=== PATIENT | female | born 1960 | race Caucasian/White ===

== ENCOUNTER 2018-12-04 11:42 | Inpatient (IN) | payer OTHER, SELFPAY ==
[2018-12-04] VITALS (15 sets, daily range): BP systolic 84–145; BP diastolic 52–73; PULSE 92–105; RESP 12–21; TEMP 36.4–37.4; O2SAT 92–99; BMI 29.1
--- NOTE | 2018-12-04 | PATH_ITS ---
[facility] Accession Number: [id number] . 01 Material submitted: . appendix - APPENDIX . 01 Clinical history: . THROWING UP ALL NIGHT, ABD PAIN . 02 Diagnosis: Appendix, Laparoscopic Appendectomy: Portions of appendiceal wall with nonspecific serosal adhesions; no definite acute appendicitis identified. Attached periappendiceal adipose tissue with scattered fragments of fibrinopurulent exudate; findings are suggestive of clinical impression of perforated appendix. Please correlate with imaging and operative findings. [facility] 12/09/2018 1710 Local . 02 Electronically signed: . Nupur Spencer MD, Pathologist NPI- [id number] . 01 Gross description: . Received in formalin, labeled appendix, is a piece of fan mucosa (2.0 x 1.3 x 0.7 cm) with an attached piece of adipose tissue (10.7 x 3.2 x 0.7 cm). The resection margin is received stapled. No obvious appendix is identified. No nodules, masses or lesions are identified. The resection margin is inked black. The mucosa is serially sectioned and entirely submitted in cassette A1 and district sales representative adipose tissue is submitted in cassette A2. Remaining possible appendiceal tissue. ([id number]) /MRV 12/08/2018 1345 Local . 02 Pathologist provided ICD-10: R10.9 . 02 CPT . 420288 Performed at: 01 [facility] [address] [facility], [place], [place] [id number] MD Graham Bernard MD Phone: [phone] Performed at: 02 [facility] [address] [place], [place] [id number] MD Edwige Morrow MD Phone: [phone]
--- NOTE | 2018-12-04 11:47 | ED.NAVMDI ---
HPI - Nausea/Vomiting/Diarrhea <Mylene Krause PA-C - Last Filed: 12/04/18 17:30> General Chief complaint: Abdominal Pain Stated complaint: throwing up all night, abd pain Time Seen by Provider: 12/04/18 11:45 Source: patient Mode of arrival: Ambulatory Limitations: no limitations History of Present Illness HPI Narrative: This 58-year-old female comes to ED secondary to onset of bloating and recurrent vomiting more than 12 hours ago, 4-5 times, mostly bilious, then abdominal pain which started about 2 hours ago. She states that she has not been able to keep down sips of water even due to the nausea and vomiting. She states that yesterday, she did eat some reheated tacos at a potluck, does not know of any others who became ill. She does not know of any other possible exposures. She states that she is feeling slightly chilled, no shakes or sweats, has not taken temperature. She states she had a small, normal bowel movement last night, no diarrhea or blood in the stools. She denies any chest pain or dyspnea, pain elsewhere such as the extremities. She denies any extremity swelling. She states that pain is in the right flank and upper quadrant area, seems constant, not exacerbated by movement or other factors that she can think of. She notes that she has been taking 2 Aleve daily, no side effects with that. No history of bleeding or ulcers Related Data Allergies Allergy/AdvReac Type Severity Reaction Status Date / Time hydromorphone [From Dilaudid] Allergy Verified 12/04/18 12:23 Sulfa (Sulfonamide Allergy Verified 12/04/18 12:23 Antibiotics) Review of Systems <Mylene Krause PA-C - Last Filed: 12/04/18 17:30> Review of Systems ROS Unobtainable: All systems reviewed & are unremarkable except as noted in HPI and below PFSH <Mylene Krause PA-C - Last Filed: 12/04/18 17:30> Medical History No chronic problems (Chronic) Surgical History Status post hysterectomy (Resolved) Status post mitral valve replacement (Resolved) Social History Smoking Status: Never smoker Social History Smoking Status: Never smoker Comment: Denies history of tobacco, moderate ETOH Exam <Mylene Krause PA-C - Last Filed: 12/04/18 17:30> Narrative Exam Narrative: GENERAL APPEARANCE: Patient appears mildly uncomfortable, in no acute distress. HEENT: PERRL, EOMI, no scleral icterus, normal oropharynx NECK: Supple LUNGS: Clear to auscultation bilaterally. HEART: Rate and rhythm regular, normal S1 and S2, no S3 or S4. ABDOMEN: Soft, mildly distended, bowel sounds present x 4 quadrants, no masses palpable. Moderate right upper quadrant tenderness with +Basurto's sign, +right CVAT. No point tenderness elsewhere, including RLQ/McBurney's point, no guarding or rebound EXTREMITIES: No edema, no cyanosis DERMATOLOGIC: No jaundice or exanthem NEUROLOGIC: Alert and oriented with normal speech and coordination Initial Vital Signs Initial Vital Signs: Vital Signs Temperature 99.3 F 12/04/18 12:09 Pulse Rate 95 H 12/04/18 12:09 Respiratory Rate 20 12/04/18 12:09 Blood Pressure 145/73 H 12/04/18 12:09 Pulse Oximetry 99 12/04/18 12:09 <Froilan Little DO - Last Filed: 12/04/18 17:38> Initial Vital Signs Initial Vital Signs: Vital Signs Temperature 99.3 F 12/04/18 12:09 Pulse Rate 95 H 12/04/18 12:09 Respiratory Rate 20 12/04/18 12:09 Blood Pressure 145/73 H 12/04/18 12:09 Pulse Oximetry 99 12/04/18 12:09 Course <Mylene Krause PA-C - Last Filed: 12/04/18 17:30> Course Additional Information: Patient is sleeping and resting comfortably after medications, reports worsening pain when ambulating to restroom earlier. She has been NPO since yesterday. Radiology phoned in advised of perforated appendicitis. Have discussed with patient and she prefers proceeding with surgery versus trial of antibiotics. I have spoken with Dr. Chavez, on-call for surgery who will admit for surgery and management ([id number]). Zosyn ordered Orders Ordered: ED Orders 12/04/18 12:01 US abdomen limited Stat 12/04/18 12:05 Complete Blood Count AUTO DIFF Stat Comprehensive Metabolic Panel Stat Lipase Stat 12/04/18 13:40 CT abdomen pelvis w con Stat Acetaminophen (Tylenol) 650 mg PO Q6HR SANJ[facility]ITA Acetaminophen (Tylenol) 325 mg PO NOW PRN PRN Reason: Pain, Mild (1-3) Enoxaparin Sodium (Lovenox) 30 mg SUBCUT DAILY [facility] Fentanyl (Sublimaze) 50 mcg IV Q5MIN PRN PRN Reason: Pain, Moderate (4-6) Dextrose/Sodium Chloride (Dextrose 5%-0.9% Ns) 1,000 mls @ 100 mls/hr IV CONT SANJUANITA Lactated Ringer's (Lactated Ringers) 1,000 mls @ 42 mls/hr IV CONT SANJUANITA Last Admin: 12/04/18 17:13 Dose: 42 mls/hr Documented by: JAIME Ketorolac Tromethamine (Toradol) 30 mg IV Q6HR [facility] Stop: 12/09/18 16:16 Lorazepam (Ativan) 0.25 mg IV NOW PRN PRN Reason: Anxiety Metoclopramide HCl (Reglan) 10 mg IV NOW PRN PRN Reason: Nausea And Vomiting Ondansetron HCl (Zofran) 4 mg IV Q8HR PRN PRN Reason: Nausea And Vomiting Ondansetron HCl (Zofran) 4 mg IV NOW PRN PRN Reason: Nausea And Vomiting Oxycodone HCl (Percolone) 5 mg PO Q6HR PRN PRN Reason: Pain, Moderate (4-6) Oxycodone/Acetaminophen (Percocet 5/325) 1 tab PO Q30MIN PRN PRN Reason: Mild or moderate pain Discontinued Medications Bupivacaine HCl (Sensorcaine 0.5% (Pf)) 30 ml INJ NOW ONE Stop: 12/04/18 16:54 Last Admin: 12/04/18 16:53 Dose: 30 ml Documented by: MELK Sodium Chloride (Normal Saline 0.9%) 1,000 mls @ 1,000 mls/hr IV BOLUS ONE Stop: 12/04/18 12:59 Last Infusion: 12/04/18 13:28 Dose: 0 mls/hr Documented by: Admin: 12/04/18 12:24 Dose: 1,000 mls/hr Documented by: BTONER Sodium Chloride (Normal Saline 0.9%) 1,000 mls @ 1,000 mls/hr IV BOLUS ONE Stop: 12/04/18 14:25 Last Infusion: 12/04/18 15:37 Dose: 0 mls/hr Documented by: Admin: 12/04/18 13:33 Dose: 1,000 mls/hr Documented by: MARY Piperacillin/Tazobactam/Dextrose (Zosyn) 4.5 gm in 100 mls @ 200 mls/hr IV NOW ONE Stop: 12/04/18 15:00 Last Infusion: 12/04/18 15:37 Dose: 0 mls/hr Documented by: Admin: 12/04/18 14:54 Dose: 200 mls/hr Documented by: MAYR Ketorolac Tromethamine (Toradol) 30 mg IV NOW ONE Stop: 12/04/18 12:01 Last Admin: 12/04/18 12:24 Dose: 30 mg Documented by: JAVON Morphine Sulfate (Morphine) 4 mg IV NOW ONE Stop: 12/04/18 13:27 Last Admin: 12/04/18 13:33 Dose: 4 mg Documented by: MARY Morphine Sulfate (Morphine) 4 mg IV NOW ONE Stop: 12/04/18 15:34 Last Admin: 12/04/18 15:57 Dose: 4 mg Documented by: MARY Ondansetron HCl (Zofran) 4 mg IV NOW ONE Stop: 12/04/18 12:01 Last Admin: 12/04/18 12:25 Dose: 4 mg Documented by: JAVON Pantoprazole Sodium (Protonix) 40 mg IV NOW ONE Stop: 12/04/18 12:01 Last Admin: 12/04/18 12:24 Dose: 40 mg Documented by: JAVON Vital Signs Vital signs: Vital Signs - 8 hr 12/04/18 12:09 Temperature 99.3 F Pulse Rate 95 H Respiratory Rate 20 Blood Pressure 145/73 H Pulse Oximetry 99 <Froilan Little DO - Last Filed: 12/04/18 17:38> Orders Ordered: ED Orders 12/04/18 12:01 US abdomen limited Stat 12/04/18 12:05 Complete Blood Count AUTO DIFF Stat Comprehensive Metabolic Panel Stat Lipase Stat 12/04/18 13:40 CT abdomen pelvis w con Stat Acetaminophen (Tylenol) 650 mg PO Q6HR [facility] Acetaminophen (Tylenol) 325 mg PO NOW PRN PRN Reason: Pain, Mild (1-3) Enoxaparin Sodium (Lovenox) 30 mg SUBCUT DAILY [facility] Fentanyl (Sublimaze) 50 mcg IV Q5MIN PRN PRN Reason: Pain, Moderate (4-6) Dextrose/Sodium Chloride (Dextrose 5%-0.9% Ns) 1,000 mls @ 100 mls/hr IV CONT SANJUANITA Lactated Ringer's (Lactated Ringers) 1,000 mls @ 42 mls/hr IV CONT SANJUANITA Last Admin: 12/04/18 17:13 Dose: 42 mls/hr Documented by: JAIME Ketorolac Tromethamine (Toradol) 30 mg IV Q6HR [facility] Stop: 12/09/18 16:16 Lorazepam (Ativan) 0.25 mg IV NOW PRN PRN Reason: Anxiety Metoclopramide HCl (Reglan) 10 mg IV NOW PRN PRN Reason: Nausea And Vomiting Ondansetron HCl (Zofran) 4 mg IV Q8HR PRN PRN Reason: Nausea And Vomiting Ondansetron HCl (Zofran) 4 mg IV NOW PRN PRN Reason: Nausea And Vomiting Oxycodone HCl (Percolone) 5 mg PO Q6HR PRN PRN Reason: Pain, Moderate (4-6) Oxycodone/Acetaminophen (Percocet 5/325) 1 tab PO Q30MIN PRN PRN Reason: Mild or moderate pain Discontinued Medications Bupivacaine HCl (Sensorcaine 0.5% (Pf)) 30 ml INJ NOW ONE Stop: 12/04/18 16:54 Last Admin: 12/04/18 16:53 Dose: 30 ml Documented by: SAILAJA Sodium Chloride (Normal Saline 0.9%) 1,000 mls @ 1,000 mls/hr IV BOLUS ONE Stop: 12/04/18 12:59 Last Infusion: 12/04/18 13:28 Dose: 0 mls/hr Documented by: Admin: 12/04/18 12:24 Dose: 1,000 mls/hr Documented by: BTONEJoaquin Sodium Chloride (Normal Saline 0.9%) 1,000 mls @ 1,000 mls/hr IV BOLUS ONE Stop: 12/04/18 14:25 Last Infusion: 12/04/18 15:37 Dose: 0 mls/hr Documented by: Admin: 12/04/18 13:33 Dose: 1,000 mls/hr Documented by: MARY Piperacillin/Tazobactam/Dextrose (Zosyn) 4.5 gm in 100 mls @ 200 mls/hr IV NOW ONE Stop: 12/04/18 15:00 Last Infusion: 12/04/18 15:37 Dose: 0 mls/hr Documented by: Admin: 12/04/18 14:54 Dose: 200 mls/hr Documented by: MARY Ketorolac Tromethamine (Toradol) 30 mg IV NOW ONE Stop: 12/04/18 12:01 Last Admin: 12/04/18 12:24 Dose: 30 mg Documented by: JAVON Morphine Sulfate (Morphine) 4 mg IV NOW ONE Stop: 12/04/18 13:27 Last Admin: 12/04/18 13:33 Dose: 4 mg Documented by: MARY Morphine Sulfate (Morphine) 4 mg IV NOW ONE Stop: 12/04/18 15:34 Last Admin: 12/04/18 15:57 Dose: 4 mg Documented by: MARY Ondansetron HCl (Zofran) 4 mg IV NOW ONE Stop: 12/04/18 12:01 Last Admin: 12/04/18 12:25 Dose: 4 mg Documented by: JAVON Pantoprazole Sodium (Protonix) 40 mg IV NOW ONE Stop: 12/04/18 12:01 Last Admin: 12/04/18 12:24 Dose: 40 mg Documented by: JAVON Vital Signs Vital signs: Vital Signs - 8 hr 12/04/18 12:09 Temperature 99.3 F Pulse Rate 95 H Respiratory Rate 20 Blood Pressure 145/73 H Pulse Oximetry 99 MDM - Nausea/Vomiting/Diarrhea <Mylene Krause PA-C - Last Filed: 12/04/18 17:30> Lab Data Attestation: I reviewed the patient's lab results. Result diagrams: 12/04/18 12:05 12/04/18 12:05 Labs: Lab Results 12/04/18 12/04/18 Range/Units 12:05 12:05 WBC 19.4 H (4.5-11.0) X10^3/uL RBC 4.80 (4.0-5.2) X10^6/uL Hgb 14.5 (12.0-16.0) g/dL Hct 42.3 (36-46) % MCV 88.2 (80-100) fL MCH 30.3 (26-34) PG MCHC 34.3 (30-36) % RDW 13.2 (11.6-14.8) % Plt Count 336 (150-400) X10^3/uL Neut % (Auto) 88.6 H (50-75) % Lymph % (Auto) 4.0 L (25-40) % Coke % (Auto) 7.1 (3-14) % Eos % (Auto) 0.0 L (2-4) % Baso % (Auto) 0.3 (0-2) % Neut # (Auto) 55762 H (0172-5351) /uL Lymph # (Auto) 800 L (2235-9163) /uL Coke # (Auto) 1400 H (0-900) /uL Eos # (Auto) 0 (0-450) /uL Baso # (Auto) 100 (0-100) /uL Sodium 135 L (137-145) mmol/L Potassium 4.0 (3.4-5.1) mmol/L Chloride 96 L (98-107) mmol/L Carbon Dioxide 28 (22-32) mmol/L BUN 13 (7-17) mg/dL Creatinine 0.60 (0.52-1.04) mg/dL Estimated GFR > 60.0 (>60) mL/min BUN/Creatinine Ratio 21.7 (6-22) Glucose 151 H (70-100) mg/dL Calcium 9.4 (8.4-10.2) mg/dL Total Bilirubin 1.0 (0.2-1.3) mg/dL AST 30 (14-36) IU/L ALT 15 (9-52) IU/L Alkaline Phosphatase 85 (38-126) U/L Total Protein 7.8 (6.3-8.2) g/dL Albumin 4.7 (3.5-5.0) g/dL Globulin 3.1 (1.7-4.1) g/dL Albumin/Globulin Ratio 1.5 (1.0-2.8) Lipase 46 (23-300) U/L Urine Dip Bedside Urine Glucose Negative Bedside Urine Bilirubin - Negative Bedside Urine Ketone +/- 5 Urine Specific Cuervo 1.015 Bedside Urine Occult Blood - Negative Bedside Urine pH 6.5 Bedside Urine Protein + 30 Bedside Urine Urobilinogen +/- 1mg Bedside Urine Nitrite - Negative Bedside Urine Leukocytes - Negative Esterase Imaging Data CT scan - abdomen: Radiologist's impression: [address] [address] [address] Scan Report Signed Patient: Karin Kowalski CMR#: [id number] : 1960Acct:[id number] Age/Sex: 58 / FDate of Service: 12/04/18 Loc: ED Accession Number: [id number] Procedure: CT abdomen pelvis w con Ordering Provider: Mylene Krause P.A-C PROCEDURE: CT ABDOMEN PELVIS W CON INDICATIONS: RUQ, flank pain, white count, vomiting TECHNIQUE: After the administration of intravenous contrast, 5 mm thick sections acquired from the diaphragm to the symphysis. 5 mm coronal and sagittal reformats were acquired. For radiation dose reduction, the following was used: automated exposure control, adjustment of mA and/or kV according to patient size. COMPARISON: [facility], , ABDOMEN LIMITED, 12/04/2018, 12:27. FINDINGS: Image quality: Excellent. ABDOMEN: Lung bases: There is mild dependent atelectasis bilaterally. Heart size is normal. Solid organs: There is a small hypodensity in the left hepatic lobe which is too small to characterize but likely represents a cyst. The gallbladder Biliary system is non dilated. Pancreas enhances normally. Spleen is normal in size. Within the anterior aspect of the spleen, there is a small hypodensity measuring up to 0.9 cm which is also too small to characterize but is suggestive of a cyst. No adrenal nodules. Kidneys demonstrate normal size and enhancement, without hydronephrosis. Peritoneum and bowel: Bowel loops demonstrate normal wall thickness and caliber. The appendix is distended, measuring up to 1.5 cm in diameter with multiple intraluminal appendicoliths. There is periappendiceal fat stranding and a moderate amount of free fluid along the right paracolic gutter as well as a small amount of perihepatic and perisplenic free fluid. No discrete loculated abscess collection. No macroscopic free air. There is colonic diverticulosis without acute diverticulitis. Nodes and vessels: No retroperitoneal or mesenteric adenopathy by size criteria. Aorta and inferior vena cava are normal in size. Miscellaneous: No ventral hernias. PELVIS: Genitourinary: Bladder wall thickness is normal. Miscellaneous: No inguinal hernias or adenopathy. Bones: No suspicious bony lesions. No vertebral body compression fractures. IMPRESSION: 1. Acute appendicitis with findings suggestive of perforation given the degree of intraperitoneal free fluid. Findings discussed with Dr. Little on 12/04/18 at 1:17 PM. Dictated by: Graham Moon M.D. on 12/04/2018 at 13:14 Approved by: Graham Moon M.D. on 12/04/2018 at 13:21 US - abdomen: Radiologist's impression: [place] [address] Ultrasound Report Signed Patient: Faustino Kowalski#: [id number] : 1960Acct:[id number] Age/Sex: 58 / FDate of Service: 12/04/18 Loc: ED Accession Number: [id number] Procedure: US abdomen limited Ordering Provider: Mylene Krause P.A-C PROCEDURE: US ABDOMEN LIMITED INDICATIONS: R FLANK, UQ PAIN, VOMITING TECHNIQUE: Real-time focused scanning was performed of the right upper quadrant, with image documentation. COMPARISON: None. FINDINGS: Sonographic evaluation of the liver demonstrates no focal hepatic lesions. Liver appears within normal size limits. No gallstones, gallbladder wall thickening, or pericholecystic fluid. No intra-or extrahepatic ductal dilatation. Common bile duct measures up to 5 mm. The visualized pancreas appears unremarkable sonographically. The right kidney measures up to 9.6 cm without hydronephrosis. IMPRESSION: 1. No evidence of cholelithiasis, cholecystitis, or right hydronephrosis. Dictated by: Graham Moon M.D. on 12/04/2018 at 12:01 Approved by: Graham Moon M.D. on 12/04/2018 at 12:02 <Froilan Little DO - Last Filed: 12/04/18 17:38> Lab Data Labs: Lab Results 12/04/18 12/04/18 Range/Units 12:05 12:05 WBC 19.4 H (4.5-11.0) X10^3/uL RBC 4.80 (4.0-5.2) X10^6/uL Hgb 14.5 (12.0-16.0) g/dL Hct 42.3 (36-46) % MCV 88.2 (80-100) fL MCH 30.3 (26-34) PG MCHC 34.3 (30-36) % RDW 13.2 (11.6-14.8) % Plt Count 336 (150-400) X10^3/uL Neut % (Auto) 88.6 H (50-75) % Lymph % (Auto) 4.0 L (25-40) % Coke % (Auto) 7.1 (3-14) % Eos % (Auto) 0.0 L (2-4) % Baso % (Auto) 0.3 (0-2) % Neut # (Auto) 38624 H (1305-8819) /uL Lymph # (Auto) 800 L (5308-9274) /uL Coke # (Auto) 1400 H (0-900) /uL Eos # (Auto) 0 (0-450) /uL Baso # (Auto) 100 (0-100) /uL Sodium 135 L (137-145) mmol/L Potassium 4.0 (3.4-5.1) mmol/L Chloride 96 L (98-107) mmol/L Carbon Dioxide 28 (22-32) mmol/L BUN 13 (7-17) mg/dL Creatinine 0.60 (0.52-1.04) mg/dL Estimated GFR > 60.0 (>60) mL/min BUN/Creatinine Ratio 21.7 (6-22) Glucose 151 H (70-100) mg/dL Calcium 9.4 (8.4-10.2) mg/dL Total Bilirubin 1.0 (0.2-1.3) mg/dL AST 30 (14-36) IU/L ALT 15 (9-52) IU/L Alkaline Phosphatase 85 (38-126) U/L Total Protein 7.8 (6.3-8.2) g/dL Albumin 4.7 (3.5-5.0) g/dL Globulin 3.1 (1.7-4.1) g/dL Albumin/Globulin Ratio 1.5 (1.0-2.8) Lipase 46 (23-300) U/L Urine Dip Bedside Urine Glucose Negative Bedside Urine Bilirubin - Negative Bedside Urine Ketone +/- 5 Urine Specific Cuervo 1.015 Bedside Urine Occult Blood - Negative Bedside Urine pH 6.5 Bedside Urine Protein + 30 Bedside Urine Urobilinogen +/- 1mg Bedside Urine Nitrite - Negative Bedside Urine Leukocytes - Negative Esterase Discharge Plan Departure Patient Disposition: Admitted As Inpatient Clinical Impression: Acute appendicitis Qualifiers: Acute appendicitis type: unspecified acute appendicitis type Qualified Code(s): K35.80 - Unspecified acute appendicitis Discharge Date/Time: 12/04/18 16:10 Admit Date/Time: 12/04/18 14:57 Admit Provider: Varghese Chavez
--- NOTE | 2018-12-04 12:01 | DI.US.S_ITS ---
PROCEDURE: US ABDOMEN LIMITED INDICATIONS: R FLANK, UQ PAIN, VOMITING TECHNIQUE: Real-time focused scanning was performed of the right upper quadrant, with image documentation. COMPARISON: None. FINDINGS: Sonographic evaluation of the liver demonstrates no focal hepatic lesions. Liver appears within normal size limits. No gallstones, gallbladder wall thickening, or pericholecystic fluid. No intra-or extrahepatic ductal dilatation. Common bile duct measures up to 5 mm. The visualized pancreas appears unremarkable sonographically. The right kidney measures up to 9.6 cm without hydronephrosis. IMPRESSION: 1. No evidence of cholelithiasis, cholecystitis, or right hydronephrosis. Dictated by: Graham Moon M.D. on 12/04/2018 at 12:01 Approved by: Graham Moon M.D. on 12/04/2018 at 12:02
[2018-12-04 12:16] LABS: Add Manual Diff / Slide Review NO; Basophils Absolute Auto 100 /uL (0-100); Basophils Percent Auto 0.3 % (0-2); Eosinophils Absolute Auto 0 /uL (0-450); Hematocrit 42.3 % (36-46); Hemoglobin 14.5 g/dL (12.0-16.0); Lymphocytes Absolute Auto 800 /uL (1100-4500); Mean Corpuscular HGB Conc 34.3 % (30-36); Mean Corpuscular Hemoglobin 30.3 PG (26-34); Mean Corpuscular Volume 88.2 fL (80-100); Monocytes Absolute Auto 1400 /uL (0-900); Monocytes Percent Auto 7.1 % (3-14); Neutrophils Absolute Auto 17200 /uL (1500-7000); Neutrophils Percent Auto 88.6 % (50-75); Platelet Count 336 X10^3/uL (150-400); Red Cell Distribution Width 13.2 % (11.6-14.8); White Blood Cell Count 19.4 X10^3/uL (4.5-11.0)
[2018-12-04] MEDS: KETOROLAC 60 MG/2 ML VIAL 30 MG IV (12:24)
[2018-12-04] MEDS: SODIUM CHLORIDE 0.9% 1,000 ML 1000 ML IV ×2 (12:24→13:33)
[2018-12-04] MEDS: PANTOPRAZOLE 40 MG VIAL IV (12:24)
[2018-12-04] MEDS: ONDANSETRON 4 MG/2 ML INJ IV (12:25)
[2018-12-04 12:36] LABS: Alanine Aminotransferase 15 IU/L (9-52); Albumin 4.7 g/dL (3.5-5.0); Albumin Globulin Ratio 1.5 (1.0-2.8); Alkaline Phosphatase 85 U/L (38-126); Aspartate Aminotransferase 30 IU/L (14-36); BUN Creatinine Ratio 21.7 (6-22); Blood Urea Nitrogen 13 mg/dL (7-17); Calcium 9.4 mg/dL (8.4-10.2); Carbon Dioxide 28 mmol/L (22-32); Chloride 96 mmol/L (98-107); Estimated Glomerular Filt Rate > 60.0 mL/min (>60); Globulin 3.1 g/dL (1.7-4.1); Glucose 151 mg/dL (70-100); HEMOLYSIS < 15 (0-50); Lipase 46 U/L (23-300); Sodium 135 mmol/L (137-145); Total Protein 7.8 g/dL (6.3-8.2)
--- NOTE | 2018-12-04 13:18 | PC.NURSE ---
pt getting up from bed and states pain went up to a 9/10.
[2018-12-04] MEDS: MORPHINE 4 MG/ML INJ IV ×2 (13:33→15:57)
--- NOTE | 2018-12-04 13:40 | DI.CT.S_ITS ---
PROCEDURE: CT ABDOMEN PELVIS W CON INDICATIONS: RUQ, flank pain, white count, vomiting TECHNIQUE: After the administration of intravenous contrast, 5 mm thick sections acquired from the diaphragm to the symphysis. 5 mm coronal and sagittal reformats were acquired. For radiation dose reduction, the following was used: automated exposure control, adjustment of mA and/or kV according to patient size. COMPARISON: [facility], , ABDOMEN LIMITED, 12/04/2018, 12:27. FINDINGS: Image quality: Excellent. ABDOMEN: Lung bases: There is mild dependent atelectasis bilaterally. Heart size is normal. Solid organs: There is a small hypodensity in the left hepatic lobe which is too small to characterize but likely represents a cyst. The gallbladder Biliary system is non dilated. Pancreas enhances normally. Spleen is normal in size. Within the anterior aspect of the spleen, there is a small hypodensity measuring up to 0.9 cm which is also too small to characterize but is suggestive of a cyst. No adrenal nodules. Kidneys demonstrate normal size and enhancement, without hydronephrosis. Peritoneum and bowel: Bowel loops demonstrate normal wall thickness and caliber. The appendix is distended, measuring up to 1.5 cm in diameter with multiple intraluminal appendicoliths. There is periappendiceal fat stranding and a moderate amount of free fluid along the right paracolic gutter as well as a small amount of perihepatic and perisplenic free fluid. No discrete loculated abscess collection. No macroscopic free air. There is colonic diverticulosis without acute diverticulitis. Nodes and vessels: No retroperitoneal or mesenteric adenopathy by size criteria. Aorta and inferior vena cava are normal in size. Miscellaneous: No ventral hernias. PELVIS: Genitourinary: Bladder wall thickness is normal. Miscellaneous: No inguinal hernias or adenopathy. Bones: No suspicious bony lesions. No vertebral body compression fractures. IMPRESSION: 1. Acute appendicitis with findings suggestive of perforation given the degree of intraperitoneal free fluid. Findings discussed with Dr. Little on 12/04/18 at 1:17 PM. Dictated by: Graham Moon M.D. on 12/04/2018 at 13:14 Approved by: Graham Moon M.D. on 12/04/2018 at 13:21
[2018-12-04] MEDS: PIPERACILLIN-TAZO 4.5 GM/100 ML FROZ.PIGGY IV (14:54)
--- NOTE | 2018-12-04 15:33 | SUR.OPER ---
Supine on padded OR bed, head on pillow, arm padded and tucked at side, legs uncrossed, safety belt at thigh, tape over blanket over lower legs .
--- NOTE | 2018-12-04 15:34 | PM.HP.1 ---
History of Present Illness History of Present Illness Date Patient Seen: 12/04/18 Time Patient Seen: 16:02 Chief complaint: throwing up all night, abd pain Narrative: 58-year-old female in had abdominal discomfort and nausea yesterday and then last night began having severe right-sided abdominal pain. Associated with nausea vomiting is having bowel movements and flatus. In the emergency room she underwent a CT abdomen pelvis demonstrates a dilated appendix with stranding and some free fluid consistent with perforated appendicitis there was no evidence of abscess. Her pain is controlled now with morphine she has received her 1st dose of Zosyn in the emergency room. Medical history is significant for hypertension, mitral valve replacement and hysterectomy. Patient History Medical History No chronic problems (Chronic) Surgical History Status post hysterectomy (Resolved) Status post mitral valve replacement (Resolved) Social History Smoking Status: Never smoker Family & Social History Safety & Behavioral: Feels Safe in Current Yes Environment Been Physically Hurt or No Threatened By a Person Tobacco & Substance use: Smoking Status Never smoker alcohol intake frequency a few times a week Meds Home Medications and Allergies Allergies Allergy/AdvReac Type Severity Reaction Status Date / Time hydromorphone [From Dilaudid] Allergy Verified 12/04/18 12:23 Sulfa (Sulfonamide Allergy Verified 12/04/18 12:23 Antibiotics) Review of Systems Review of Systems ROS Unobtainable: All systems reviewed & are unremarkable except as noted in HPI and below Exam Vital Signs (past 8 hours): - 12/04/18 12:09 12/04/18 15:31 Temperature 99.3 F Pulse Rate 95 H 92 H Respiratory Rate 20 20 Blood Pressure 145/73 H Blood Pressure [Left Arm] 115/63 Pulse Oximetry 99 93 Oxygen Delivery Method Room Air Narrative Exam Narrative: General-adult female no acute distress, well nourished HEENT-moist mucous membranes, no scleral icterus Neck-supple with full range of motion, no lymphadenopathy Chest- no labored respirations, clear to auscultation bilaterally Cardiac-regular rate and rhythm Abdomen-mildly distended, focal peritonitis RLQ, no rebound Extremities-no edema, warm well perfused Neurological-alert and oriented x 3. No focal deficits Skin-normal temperature and turgor, no rashes or ulcers Objective Labs Result Diagrams: 12/04/18 12:05 12/04/18 12:05 Labs: Laboratory Results - last 24 hr 12/04/18 12/04/18 12:05 12:05 WBC 19.4 H RBC 4.80 Hgb 14.5 Hct 42.3 MCV 88.2 MCH 30.3 MCHC 34.3 RDW 13.2 Plt Count 336 Neut % (Auto) 88.6 H Lymph % (Auto) 4.0 L Emanuel % (Auto) 7.1 Eos % (Auto) 0.0 L Baso % (Auto) 0.3 Neut # (Auto) 32975 H Lymph # (Auto) 800 L Emanuel # (Auto) 1400 H Eos # (Auto) 0 Baso # (Auto) 100 Sodium 135 L Potassium 4.0 Chloride 96 L Carbon Dioxide 28 BUN 13 Creatinine 0.60 Estimated GFR > 60.0 BUN/Creatinine Ratio 21.7 Glucose 151 H Calcium 9.4 Total Bilirubin 1.0 AST 30 ALT 15 Alkaline Phosphatase 85 Total Protein 7.8 Albumin 4.7 Globulin 3.1 Albumin/Globulin Ratio 1.5 Lipase 46 Assessment & Plan Assessment and plan (1) Acute appendicitis: Qualifiers: Acute appendicitis type: unspecified acute appendicitis type Qualified Code(s): K35.80 - Unspecified acute appendicitis Current visit: Yes Status: Acute Assessment & Plan narrative: A 58-year-old female with acute appendicitis likely ruptured. White count 19, CT reviewed inflamed dilated appendix with free fluid no evidence of abscess. Laparoscopic appendectomy is indicated. I discussed the operation with the patient including its risks of bleeding, infection, conversion to open. Her questions have been answered and she is in agreement with this plan. -NPO -Zosyn -observation
[2018-12-04] MEDS: BUPIVACAINE 0.5% (PF) VIAL 30 ML INJ (16:53)
[2018-12-04] MEDS: LACTATED RINGERS 1,000 ML 42 ML IV ×2 (17:13→18:57)
--- NOTE | 2018-12-04 17:55 | PM.OP.1 ---
Operative Date/Time/Diagnoses Date of procedure: 12/04/18 Time of procedure: 17:55 Pre-op diagnosis: Perforated appendicitis Post-op diagnosis: same Procedure & Clinicians Procedure: Laparoscopic appendectomy Same procedure as scheduled: Yes Indications: 58-year-old woman who presented with abdominal pain x1 day CT demonstrating perforated appendicitis no abscess. Surgeon: Varghese Chavez Click Yes if Unassisted: Yes Anesthesia Type: General Operative Notes Findings: Perforated appendicitis with early abscess formation Specimen(s): other (Appendix) Estimated Blood Loss (mL): 10 Procedure in detail: Patient was brought to the operating room placed supine on the table. Bilateral lower extremity compression devices were applied. She was induced and intubated with an endotracheal tube. She received 3.375 g of Zosyn prior to skin incision. She was then prepped and draped in usual sterile fashion. Time-out was performed to ensure the correct patient procedure necessary equipment within the operating room. The skin was infiltrated with 0.25% bupivacaine. A infraumbilical incision was made the umbilical stalk was grasped and elevated and incision was made and the abdomen was entered atraumatically. A 12 mm balloon trocar was then placed into the incision and pneumoperitoneum was established. The scope was then inspected abdomen inspected and there was no evidence of injury upon entry. Two 5 mm working ports were then placed supra pubic and in the left lower quadrant. The small bowel was then swept to the upper aspect. The cecum was adherent to the right pelvic wall within a rind of early abscess formation. The loculations were dissected and the cecum was identified and the appendix was perforated and adherent to the cecum. The appendix was grasped and a window within the mesentery was made. The appendix was then transected from the cecum using the Endo GI stapler with a blue load. Next the mesentery to the appendix was taken with the stapler using the vascular staple load. The specimen was removed using the Endo-Catch bag. The abdomen was irrigated and hemostasis was checked. The ports were then removed under direct visualization. The umbilical fascial incision was closed with 0 Vicryl in a figure-eight fashion. The skin wounds were irrigated and closed with Monocryl followed by the application of Dermabond. Sponge instrument count at the end of the operation was correct. The patient tolerated procedure well was extubated and transferred to the postoperative care unit in stable condition Complications: none Post-operative Condition: stable Disposition: observation
[2018-12-04] MEDS: PIPERACILLIN-TAZO 3.375 GM/50 ML FROZ.PIGGY IV (18:57)
[2018-12-04] MEDS: ACETAMINOPHEN 325 MG TABLET 650 MG PO (19:05)
[2018-12-04] MEDS: KETOROLAC 30 MG/ML VIAL IV (19:06)
--- NOTE | 2018-12-04 19:47 | PC.NURSE ---
Pt arrived on unit from PACU on a stretcher, alert and orientated x 4. VSS, tachy in th 85-90 range. Rated pain 6/10. Given APAP 650 mg po and toradol 30 mg IVP with good results. Spouse Cliff at bedside. Pt denies nausea, does not feel the need to void yet. Tolerating IVF and ABOs well.
--- NOTE | 2018-12-04 20:04 | PC.NURSE ---
No tele required per surgeon.
[2018-12-04] MEDS: OXYCODONE IR 5 MG TABLET PO (20:15)
[2018-12-04] MEDS: OXYCODONE/ACETAMINOPHEN 5/325 TABLET 1 TAB PO (22:33)
[2018-12-05] VITALS (9 sets, daily range): BP systolic 100–133; BP diastolic 61–72; PULSE 80–100; RESP 16–18; TEMP 35.7–36.9; O2SAT 92–97
[2018-12-05] MEDS: PIPERACILLIN-TAZO 3.375 GM/50 ML FROZ.PIGGY IV ×3 (01:39→17:35)
[2018-12-05] MEDS: ACETAMINOPHEN 325 MG TABLET 650 MG PO ×4 (01:40→17:35)
[2018-12-05] MEDS: KETOROLAC 30 MG/ML VIAL IV ×4 (01:40→17:36)
[2018-12-05] MEDS: MORPHINE 2 MG/ML INJ IV (05:33)
[2018-12-05 06:25] LABS: Hematocrit 37.7 % (36-46); Hemoglobin 12.6 g/dL (12.0-16.0); Mean Corpuscular HGB Conc 33.6 % (30-36); Mean Corpuscular Hemoglobin 30.2 PG (26-34); Mean Corpuscular Volume 90.1 fL (80-100); Platelet Count 247 X10^3/uL (150-400); Red Blood Cell Count 4.18 X10^6/uL (4.0-5.2); Red Cell Distribution Width 13.4 % (11.6-14.8); White Blood Cell Count 20.2 X10^3/uL (4.5-11.0)
[2018-12-05 06:30] LABS: BUN Creatinine Ratio 18.9 (6-22); Blood Urea Nitrogen 17 mg/dL (7-17); Calcium 8.7 mg/dL (8.4-10.2); Carbon Dioxide 28 mmol/L (22-32); Chloride 100 mmol/L (98-107); Estimated Glomerular Filt Rate > 60.0 mL/min (>60); Glucose 144 mg/dL (70-100); HEMOLYSIS < 15 (0-50); Magnesium 1.8 mg/dL (1.6-2.3); Phosphorous 3.5 mg/dL (2.5-4.5); Potassium 4.2 mmol/L (3.4-5.1); Sodium 136 mmol/L (137-145)
--- NOTE | 2018-12-05 06:43 | PC.NURSE ---
Pt reports pain a RLQ 6-7/10 when taking deep breaths and with activity. Pt on scheduled IV toradol and tylenol. PRN IV morphine given x1 with good effect. Pt tolerating PO intake without nausea. BT x4, reports passing gas. SCDs on.
[2018-12-05 07:13] LABS: Add Manual Diff / Slide Review YES
[2018-12-05 07:15] LABS: Neutrophils Absolute Manual 18382 /uL (3000-5900); RBC Morphology Normal Morphology; Total Cells Counted 100
--- NOTE | 2018-12-05 08:56 | PM.PNPO.1 ---
Subjective Subjective Date Patient Seen: 12/05/18 Time Patient Seen: 08:57 Interval history: Increasing abdominal pain. No nausea vomiting fever. Tolerated regular diet. Exam Vital Signs (past 8 hours): - 12/05/18 03:02 12/05/18 07:22 Temperature 97.8 F Pulse Rate 89 Respiratory Rate 16 Blood Pressure 118/72 Pulse Oximetry 97 95 Oxygen Delivery Method Nasal Cannula Oxygen Flow Rate 2 Narrative Exam Narrative: General adult female alert oriented no acute distress Chest nonlabored respirations Abdomen tender right lower quadrant improved from yesterday. Incisions clean dry intact Objective Labs Result Diagrams: 12/05/18 05:01 12/05/18 05:01 Labs: Laboratory Results - last 24 hr 12/04/18 12/04/18 12/05/18 12:05 12:05 05:01 WBC 19.4 H 20.2 H RBC 4.80 4.18 Hgb 14.5 12.6 Hct 42.3 37.7 MCV 88.2 90.1 MCH 30.3 30.2 MCHC 34.3 33.6 RDW 13.2 13.4 Plt Count 336 247 Neut % (Auto) 88.6 H Not Reportable Lymph % (Auto) 4.0 L Not Reportable Sear[place] % (Auto) 7.1 Not Reportable Eos % (Auto) 0.0 L Not Reportable Baso % (Auto) 0.3 Not Reportable Neut # (Auto) 25611 H Lymph # (Auto) 800 L Not Reportable [place] # (Auto) 1400 H Not Reportable Eos # (Auto) 0 Baso # (Auto) 100 Not Reportable Total Counted 100 Seg Neutrophils % 70.0 Band Neutrophils % 21.0 H Lymphocytes % (Manual) 4.0 L Monocytes % (Manual) 5.0 Neutrophils # (Manual) 74133 H RBC Morphology Normal morphology Sodium 135 L Potassium 4.0 Chloride 96 L Carbon Dioxide 28 BUN 13 Creatinine 0.60 Estimated GFR > 60.0 BUN/Creatinine Ratio 21.7 Glucose 151 H Calcium 9.4 Phosphorus Magnesium Total Bilirubin 1.0 AST 30 ALT 15 Alkaline Phosphatase 85 Total Protein 7.8 Albumin 4.7 Globulin 3.1 Albumin/Globulin Ratio 1.5 Lipase 46 12/05/18 05:01 WBC RBC Hgb Hct MCV MCH MCHC RDW Plt Count Neut % (Auto) Lymph % (Auto) [place] % (Auto) Eos % (Auto) Baso % (Auto) Neut # (Auto) Lymph # (Auto) [place] # (Auto) Eos # (Auto) Baso # (Auto) Total Counted Seg Neutrophils % Band Neutrophils % Lymphocytes % (Manual) Monocytes % (Manual) Neutrophils # (Manual) RBC Morphology Sodium 136 L Potassium 4.2 Chloride 100 Carbon Dioxide 28 BUN 17 Creatinine 0.90 Estimated GFR > 60.0 BUN/Creatinine Ratio 18.9 Glucose 144 H Calcium 8.7 Phosphorus 3.5 Magnesium 1.8 Total Bilirubin AST ALT Alkaline Phosphatase Total Protein Albumin Globulin Albumin/Globulin Ratio Lipase Assessment & Plan Post-op Postoperative Procedures: Procedures Operation Date: 12/04/18 16:00 Actual Procedures Side Surgeon p Laparoscopic Appendectomy Not Applicable Varghese Chavez MD Postoperative day: 1 Postoperative status narrative: 58-year-old female postoperative day 1 status post laparoscopic appendectomy for perforated appendicitis. Doing well. White blood cell count remains elevated no fever will continue IV Zosyn today. -Diet as tolerated -DC IV fluids -Lovenox and SCDs for VTE prophylaxis
[2018-12-05] MEDS: ENOXAPARIN 30 MG/0.3 ML SYRINGE SUBCUT (09:54)
[2018-12-05] MEDS: OXYCODONE/ACETAMINOPHEN 5/325 TABLET 1 TAB PO (10:19)
[2018-12-05] MEDS: OXYCODONE IR 5 MG TABLET PO (10:33)
--- NOTE | 2018-12-05 15:25 | CM.DANOTE ---
Patient is a 58 year old female who was admitted on 12/04/18 for Perf Lap appe. Pt has [employer] for insurance and her PCP is not listed. EMR was reviewed. Per Surgeon, pt tolerated procedure well and able to tolerate diet with no nausea. Per RN, pt on IV morphine for pain but independent in room and no concerns at this time. SW met bedside with pt briefly and explained role and pt confirms that she lives with her spouse in [place] and is independent with ADL's at baseline and works and drives. Pt denies any hx of HH or SNF and preference is to d/c back home when medically stable. Pt does not anticipate any SW needs. Plan: SW to follow for likely pt d/c home when medically stable. SW to follow for any further identified discharge planning needs. CELE Walker Discharge Planning/Care Management CM Discharge Assessment Start: 12/05/18 15:21 Freq: Status: Active Protocol: Document 12/05/18 15:22 BF (Rec: 12/05/18 15:25 BF [id number]) Discharge Planning Assessment Assigned African Studies Professor CELE Solorzano Advance Directives? No Advance Directives on File No History Provided By Patient,Medical Record Has Patient been admitted in last 30 No days? Prior Living Arrangements House Household Members spouse Type of transporation used prior to Drives own vehicle admit Independent with ADL's Yes Is patient alert and oriented? Yes Caregiver for Another No Comment Likely home pending pt's progress Barriers to Discharge No Discharge Plan Home Transportation Arrangement Family can likely provide transport Referrals Initiated None needed Review Status In Process Please Provide Date Initial DC 12/05/18 Assessment Was Performed Next Review Type Continued Stay Review
--- NOTE | 2018-12-05 15:34 | PC.NURSE ---
Pt using IS with 1400 mL, cough/deep breath; O2 Ra= 99%; BTs hypo and pt denies flatulence; tolerating diet; PO pain meds and IV Ketorlac for moderate pain; Pt request stool softeners
[2018-12-05] MEDS: OXYCODONE IR 10 MG TABLET PO (15:40)
[2018-12-05] MEDS: DOCUSATE 100 MG CAPSULE PO (20:37)
[2018-12-05] MEDS: POLYETHYLENE GLYCOL 3350 17 GM POWD.PACK PO (20:37)
[2018-12-05] MEDS: SENNOSIDES 8.6 MG TABLET PO (20:37)
[2018-12-06] VITALS (7 sets, daily range): BP systolic 104–139; BP diastolic 62–77; PULSE 79–89; RESP 16; TEMP 36.6–37.8; O2SAT 92–95
[2018-12-06] MEDS: KETOROLAC 30 MG/ML VIAL IV ×2 (00:53→05:44)
[2018-12-06] MEDS: ACETAMINOPHEN 325 MG TABLET 650 MG PO ×3 (00:54→11:34)
[2018-12-06] MEDS: PIPERACILLIN-TAZO 3.375 GM/50 ML FROZ.PIGGY IV ×2 (01:21→11:34)
[2018-12-06 06:53] LABS: Add Manual Diff / Slide Review NO; Basophils Absolute Auto 0 /uL (0-100); Basophils Percent Auto 0.1 % (0-2); Eosinophils Absolute Auto 0 /uL (0-450); Hematocrit 32.1 % (36-46); Hemoglobin 10.9 g/dL (12.0-16.0); Lymphocytes Absolute Auto 700 /uL (1100-4500); Lymphocytes Percent Auto 3.5 % (25-40); Mean Corpuscular HGB Conc 33.8 % (30-36); Mean Corpuscular Hemoglobin 30.3 PG (26-34); Mean Corpuscular Volume 89.7 fL (80-100); Monocytes Absolute Auto 500 /uL (0-900); Monocytes Percent Auto 2.7 % (3-14); Neutrophils Absolute Auto 17800 /uL (1500-7000); Neutrophils Percent Auto 93.7 % (50-75); Platelet Count 226 X10^3/uL (150-400); Red Blood Cell Count 3.58 X10^6/uL (4.0-5.2); Red Cell Distribution Width 13.5 % (11.6-14.8)
--- NOTE | 2018-12-06 09:07 | PC.NURSE ---
Pt stated she would like to walk two laps around the acute care floor. I asked the RN who gave approval and pt walked with a front wheel walker two laps then returned to her room with no concerns.
[2018-12-06] MEDS: DOCUSATE 100 MG CAPSULE PO (09:23)
[2018-12-06] MEDS: SENNOSIDES 8.6 MG TABLET PO (09:23)
[2018-12-06] MEDS: OXYCODONE IR 5 MG TABLET PO ×2 (09:24→11:37)
--- NOTE | 2018-12-06 09:28 | PM.DS.1 ---
History of Present Illness History of Present Illness Chief complaint: throwing up all night, abd pain Narrative: 58-year-old female in had abdominal discomfort and nausea yesterday and then last night began having severe right-sided abdominal pain. Associated with nausea vomiting is having bowel movements and flatus. In the emergency room she underwent a CT abdomen pelvis demonstrates a dilated appendix with stranding and some free fluid consistent with perforated appendicitis there was no evidence of abscess. Her pain is controlled now with morphine she has received her 1st dose of Zosyn in the emergency room. Medical history is significant for hypertension, mitral valve replacement and hysterectomy. Discharge Providers Provider Date of admission: 12/04/18 14:57 Discharge Date: 12/06/18 Discharge provider: Varghese Chavez MD Summary Hospital Course Discharge Diagnosis: Perforated appendicitis Hospital Course: Patient presented to the emergency room with acute appendicitis. She had nausea, leucocytosis and CT demonstrated acute appendicitis with free fluid no abscess. She underwent laparoscopic appendectomy that demonstrated a perforated appendix. Postoperatively she received IV Zosyn and has been transitioned to Augmentin. On the date of discharge the patient is doing well without fever nausea vomiting tolerating a regular diet, ambulatory. Status at Discharge Cognitive/behavioral status at discharge: oriented Functional status at discharge: independent ambulation Overall status at discharge: patient is back to baseline Time Spent with Patient Time spent: Greater than 30 minutes Exam Vital Signs (past 8 hours): - 12/06/18 04:37 12/06/18 07:30 Temperature 97.9 F 98.2 F Pulse Rate 79 79 Respiratory Rate 16 16 Blood Pressure 104/62 108/75 Pulse Oximetry 92 93 Fraction of Inspired Oxygen 24 Oxygen Delivery Method Room Air Oxygen Flow Rate 0 Narrative Exam Narrative: General adult female alert oriented no acute distress Chest nonlabored respirations no audible wheezes Abdomen soft compressible incisions clean dry intact. Objective Labs Result Diagrams: 12/06/18 06:35 12/05/18 05:01 Labs: Laboratory Results - last 24 hr 12/06/18 06:35 WBC 19.0 H RBC 3.58 L Hgb 10.9 L Hct 32.1 L MCV 89.7 MCH 30.3 MCHC 33.8 RDW 13.5 Plt Count 226 Neut % (Auto) 93.7 H Lymph % (Auto) 3.5 L Swisher % (Auto) 2.7 L Eos % (Auto) 0.0 L Baso % (Auto) 0.1 Neut # (Auto) 24011 H Lymph # (Auto) 700 L Swisher # (Auto) 500 Eos # (Auto) 0 Baso # (Auto) 0 Discharge Plan Discharge Plan Patient Disposition: Home Discharge Med Rec/Prescriptions Prescriptions: New acetaminophen 325 mg Tablet 650 mg PO Q6HR Qty: 30 RF: 0 oxycodone 5 mg Tablet 5 mg PO Q6HR PRN (Reason: Pain, Moderate (4-6)) Qty: 30 RF: 0 amoxicillin-pot clavulanate [Augmentin] 500-125 mg tablet 1 tab PO BID Qty: 14 RF: 0 Continued aspirin [Aspirin Low Dose] 81 mg Tablet,Delayed Release (Dr/Ec) 81 mg PO DAILY RF: 0 Follow up/Referrals: Varghese Chavez MD [Physician] - Provider Discharge Instructions Diet: Diet as Tolerated Activity: No lifting >20 lbs x 4 weeks. Walking only for exercise for 4 weeks[address] while taking narcotics. Skin/Wound/Dressing Care Report to your healthcare provider any signs of infection, such as:: chills, fever, increased pain, unusual drainage and unusual redness Visit Report/Discharge Packet Instructions: DI for an Appendectomy
[2018-12-06] MEDS: OXYCODONE IR 10 MG TABLET PO (13:59)
--- NOTE | 2018-12-06 14:47 | PC.NURSE ---
Discharge home: IV dc'd intact. Reviewed all d/c instructions thoroughly with patient. She is aware that scripts for Tylenol and Augmentin have been sent to [facility] in [place], and was given paper prescription for Oxycodone. Given follow up info (2 weeks). Given s/sx with which to call MD or return to ED. Patient verbalized understanding of all d/c info and stated no further questions. All personal belonging sent with patient at d/c. Wheeled out to private vehicle by nursing staff.
== END 2018-12-06 14:52 | disposition home or self-care (01) | DRG 340 ==
LOC: ED 14:36 → AC 14:59
PROVIDERS: Admitting Provider Surgery; Emergency Provider Internal Medicine; Visit Provider Surgery
PROC: 0DTJ4ZZ Resection of Appendix, Percutaneous Endoscopic Approach (ICD-10-PCS; CPT 44970; principal; 2018-12-04 16:00)
DX: K35.32 Acute appendicitis with perforation, localized peritonitis, and gangrene, without abscess (principal)
CPT/HCPCS: 36415; 36591; 74177; 76705; 80048; 80053; 81003; 83690; 83735; 84100; 85025; 94760; 96365; 96375; 96376; 99283; 99285; C9113; J0330; J1100; J1650; J1885; J2250; J2270; J2405; J2543; J2704; J3010; Q9967